=== PATIENT | male | born 1975 | race Caucasian/White ===

== ENCOUNTER 2019-08-14 17:29 | Emergency (ER) | payer BC ==
[2019-08-14] MEDS ORDERED: Tetan/Diph/Pertus SYR(Tdap)* 0.5 ML SYR(BOOSTRIX) use SYR contains LATEX IM ONE (17:44)
--- NOTE | 2019-08-14 17:45 | ED ---
Laceration/Wound HPI - HPI Summary HPI Summary: Pt is a 43 y/o M presenting to the ED with a chief complaint of a laceration on his L hand palm. He states he was cutting his [place] tree off the roof of his car with an exacto knife and his hand slipped, cutting the palm. He reports pain and bleeding. He denies numbness and tingling in the hand. Last tetanus shot unknown. - History of Current Complaint Stated Complaint: HAND INJURY PER PT Time Seen by Provider: 08/14/19 17:38 Hx Obtained From: Patient Mechanism of Injury: Sharp/Blunt Trauma Onset/Duration: Sudden Onset, Lasting Minutes, Still Present Aggravating: Nothing Alleviating: Nothing Timing: Constant Onset Severity: Moderate Current Severity: Moderate Pain Intensity: 5 Pain Scale Used: 0-10 Numeric Associated Signs & Symptoms: Pain Related Hx: Dominant Hand (Right) - Allergy/Home Medications Allergies/Adverse Reactions: Allergies Allergy/AdvReac Type Severity Reaction Status Date / Time No Known Allergies Allergy Verified 08/14/19 17:35 Home Medications: Home Medications Ibuprofen TAB* [Motrin TAB* 800 MG] 800 mg PO Q8HR PRN 08/14/19 [History Confirmed 08/14/19] PMH/Surg Hx/FS Hx/Imm Hx Previously Healthy: Yes Endocrine/Hematology History: Denies: Hx Diabetes Cardiovascular History: Denies: Hx Congestive Heart Failure, Hx Hypertension, Hx Pacemaker/ICD History: Reports: Other Problems/Disorders - RENAL CALCULI WITH STENT Denies: Hx Renal Disease Musculoskeletal History: Reports: Hx Back Problems - BACK SURGERY 2012 Sensory History: Denies: Hx Hearing Aid Neurological History: Reports: Hx Migraine Psychiatric History: Denies: Hx Panic Disorder - Surgical History Surgery Procedure, Year, and Place: RENAL STENT FOR RENAL CALCULI. TONSILS 2005. KNEE 2006. LOWER BACK MAY 2013 Hx Anesthesia Reactions: No Infectious Disease History: No Infectious Disease History: Denies: Traveled Outside the [place] in Last 30 Days - Family History Known Family History: Negative: Diabetes - Social History Occupation: Employed Full-time Lives: With Family Alcohol Use: Rare Hx Substance Use: No Substance Use Type: Reports: None Hx Tobacco Use: No Smoking Status (MU): Never Smoked Tobacco Review of Systems Positive: Myalgia Positive: Other - laceration, bleeding Negative: Paresthesia, Numbness All Other Systems Reviewed And Are Negative: Yes Physical Exam - Summary Physical Exam Summary: Constitutional: Well-developed, Well-nourished, Alert. (-) Distressed Skin: Warm, Dry. L palm just distal to the wrist crease with a 2cm laceration. No gaping wound. Full ROM in wrist and fingers. HENT: Normocephalic; Atraumatic Eyes: Conjunctiva normal Neck: Musculoskeletal ROM normal neck. (-) JVD, (-) Stridor, (-) Tracheal deviation Cardio: Rhythm regular, rate normal, Heart sounds normal; Intact distal pulses; Radial pulses are 2+ and symmetric. (-) Murmur Pulmonary/Chest wall: Effort normal. (-) Respiratory distress, (-) Wheezes, (-) Rales Abd: Soft, (-) tenderness, (-) Distension, (-) Guarding, (-) Rebound Musculoskeletal: (-) Edema Lymph: (-) Cervical adenopathy Neuro: Alert, Oriented x3 Psych: Mood and affect Normal Triage Information Reviewed: Yes Vital Signs On Initial Exam: Initial Vitals Temp Pulse Resp BP Pulse Ox 97.3 F 86 16 176/110 95 08/14/19 17:32 08/14/19 17:32 08/14/19 17:32 08/14/19 17:32 08/14/19 17:32 Vital Signs Reviewed: Yes Procedures - Sedation Patient Received Moderate/Deep Sedation with Procedure: No - Laceration/Wound Repair 1 Location: upper extremity - L hand (palm) Description: Linear Anesthesia: Local, 1.0%, Lido Betadine Prep?: No Irrigated w/ Saline (ccs): 500 Laceration/Wound Explored: clean Closure: Single Layer Debridement: minimal Suture Type: Prolene - 5-0 Number of Sutures: 3 Layer Closure?: Yes Sterile Dressing Applied?: Yes Diagnostics - Vital Signs Vital Signs Temp Pulse Resp BP Pulse Ox 08/14/19 17:32 97.3 F 86 16 176/110 95 - Laboratory Lab Statement: Any lab studies that have been ordered have been reviewed, and results considered in the medical decision making process. Laceration Repair Course/Dx - Course Course Of Treatment: Patient is here with a laceration to his palm. Patient was given tetanus as he cannot remember his last tetanus shot. Patient had his wound cleaned and repaired with sutures. - Clinical Impression Provider Diagnoses: Laceration of left hand Discharge ED - Sign-Out/Discharge Documenting (check all that apply): Patient Departure - Discharge Plan Condition: Stable Disposition: HOME Patient Education Materials: Care For Your Stitches (ED), Laceration (ED) Referrals: Omar Ricketts MD [Primary Care Provider] - Additional Instructions: Please see your primary care provider or return to the emergency department in the next 5-10 days to have your stitches removed. Come back to the emergency department if the area begins to worsen in pain, swell, if there's any pus drainage, or if the area becomes warm and more painful. You can wash your stitches, but please try to keep them dry when you are out of the shower. - Billing Disposition and Condition Condition: STABLE Disposition: Home - Attestation Statements Document Initiated by [place]: Yes Documenting Scribe: Jodie Garcia Provider For Whom Crut is Documenting (Include Credential): Ramez Pereira MD. Scribe Attestation: IJodie, scribed for Ramez Pereira MD. on 08/14/19 at 1811. Scribe Documentation Reviewed: Yes Provider Attestation: The documentation as recorded by the [email or web address] accurately reflects the service I personally performed and the decisions made by me, Ramez Pereira MD. Status of Scribe Document: Viewed
[2019-08-14 18:15] VITALS: BP 182/111
== END 2019-08-14 18:14 | disposition home or self-care (01) ==
LOC: ED 17:29
DX: S61.412A Laceration without foreign body of left hand, initial encounter (principal); W26.0XXA Contact with knife, initial encounter; Y92.9 Unspecified place or not applicable
CPT/HCPCS: 12001; 90471; 90715; 99281

== ENCOUNTER 2019-08-23 05:52 | Emergency (ER) | payer BC ==
[2019-08-23 06:10] LABS: ABS Basophils 0.1 10^3/ul (0-0.2); ABS Eosinophils 0.3 10^3/ul (0-0.6); ABS Lymphocytes 2.7 10^3/ul (1.0-4.8); ABS Monocytes 1.1 10^3/ul (0-0.8); ABS Neutrophils 6.2 10^3/ul (1.5-7.7); Eosinophil % 3.1 %; Hematocrit 45 % (42-52); Hemoglobin 15.2 g/dL (14.0-18.0); Lymphocyte % 26.2 %; Mean Corpuscular HGB Conc 34 g/dL (31-36); Mean Corpuscular Hemoglobin 29 pg (27-31); Mean Corpuscular Volume 87 fL (80-94); Mean Platelet Volume 7.3 fL (7.4-10.4); Nucleated Red Blood Cells % 0.1; Platelet Count 415 10^3/uL (150-450); Red Blood Count 5.19 10^6 /uL (4.18-5.48); Red Cell Distribution Width 13 % (10-15); White Blood Count 10.5 10^3/uL (3.5-10.8)
[2019-08-23] MEDS ORDERED: Nitroglycerin TAB 0.4 MG* 0.4 MG TAB SL ONE (06:22)
[2019-08-23 06:28] LABS: Albumin 4.7 g/dL (3.2-5.2); Albumin/Globulin Ratio 1.6 (1-3); BUN/Creatinine Ratio 26.5 (8-20); Calcium 9.8 mg/dL (8.6-10.3); EGFR Non-African American 83.5 (>60); Globulin 2.9 g/dL (2-4); Potassium 3.9 mmol/L (3.5-5.0); Total Bilirubin 0.5 mg/dL (0.2-1.0); Total Protein 7.6 g/dL (6.4-8.9)
[2019-08-23] MEDS ORDERED: Ondansetron ODT TAB* 4 MG SL ONE (07:06)
--- NOTE | 2019-08-23 07:21 | ED ---
HPI Chest Pain - HPI Summary HPI Summary: Pt presents with mid-sternal chest tightness and L arm tingling and nausea since 2:30am. No current modifying factors. Since he awoke with sxs of nausea at 2:30a, followed by a concerned feeling and heart racing. He states he was here recently with a hand injury and noted to have high BP, since then (2 weeks ago), patient continues to have concerns over his new dx of high blood pressure. Takes no medications. He does have a follow up apt with PCP regarding his HTN finding. Pt states on arrival he is feeling improved, however continues to have slight nausea. Denies cardiac hx. Family hx includes CAD. He states he had a hypothyroid dx 15yrs ago, but has never been treated. He was treated for high cholesterol also several years ago, but does not take medication now. Endorses sedentary lifestyle, no exercise, rare alcohol and non-smoker. He has never had these sxs before. He does admit to increased anxiety over the past 2 weeks since his HTN dx, but denies any previous dx. Denies recent illness. Denies weight gain, change of diet, cough , congestion, fevers, sweats, chills or recent travel. Denies SOB and abd pain. - History of Current Complaint Chief Complaint: EDChestPainROMI Time Seen by Provider: 08/23/19 06:00 Hx Obtained From: Patient Onset/Duration: Started Hours Ago Timing: Constant Initial Severity: Mild Current Severity: Mild Pain Intensity: 4 Pain Scale Used: 0-10 Numeric Chest Pain Radiates: No Aggravating Factor(s): Nothing Alleviating Factor(s): Nothing Associated Signs and Symptoms: Positive: Negative - Risk Factors Pulmonary Embolism Risk Factors: Negative TAD Risk Factors: Negative AMI/ACS Risk Factors: Family History, Hypertension - Allergy/Home Medications Allergies/Adverse Reactions: Allergies Allergy/AdvReac Type Severity Reaction Status Date / Time No Known Allergies Allergy Verified 08/23/19 06:00 PMH/Surg Hx/FS Hx/Imm Hx Previously Healthy: Yes Endocrine/Hematology History: Denies: Hx Diabetes Cardiovascular History: Denies: Hx Congestive Heart Failure, Hx Hypertension, Hx Pacemaker/ICD History: Reports: Other Problems/Disorders - RENAL CALCULI WITH STENT Denies: Hx Renal Disease Musculoskeletal History: Reports: Hx Back Problems - BACK SURGERY 2013 Sensory History: Denies: Hx Hearing Aid Neurological History: Reports: Hx Migraine Psychiatric History: Denies: Hx Panic Disorder - Surgical History Surgery Procedure, Year, and Place: RENAL STENT FOR RENAL CALCULI. TONSILS 2005. KNEE 2006. LOWER BACK MAY 2013 Hx Anesthesia Reactions: No - Immunization History Hx Pertussis Vaccination: No Immunizations Up to Date: Yes Infectious Disease History: No Infectious Disease History: Denies: Traveled Outside the [place] in Last 30 Days - Family History Known Family History: Negative: Diabetes - Social History Occupation: Employed Full-time Lives: With Family Alcohol Use: Rare Hx Substance Use: No Substance Use Type: Reports: None Hx Tobacco Use: No Smoking Status (MU): Never Smoked Tobacco Review of Systems Negative: Fever, Chills, Fatigue, Skin Diaphoresis Positive: Chest Pain, Other - heart racing Negative: Shortness Of Breath, Cough Positive: Nausea. Negative: Abdominal Pain, Vomiting, Diarrhea Genitourinary: Negative Positive: no symptoms reported, see HPI. Negative: burning, dysuria, discharge , flank pain, hematuria, urgency Negative: Arthralgia, Myalgia Skin: Negative Neurological: Negative Positive: Anxious - regarding recent HTN dx All Other Systems Reviewed And Are Negative: Yes Physical Exam Triage Information Reviewed: Yes Vital Signs On Initial Exam: Initial Vitals Temp Pulse Resp BP Pulse Ox 97.6 F 77 16 157/103 99 08/23/19 05:58 08/23/19 05:58 08/23/19 05:58 08/23/19 05:58 08/23/19 05:58 Vital Signs Reviewed: Yes Appearance: Positive: Well-Appearing, Well-Nourished Skin: Positive: Warm, Skin Color Reflects Adequate Perfusion Head/Face: Positive: Normal Head/Face Inspection Eyes: Positive: EOMI, CHAIM, Conjunctiva Clear Neck: Positive: Supple, No Lymphadenopathy Respiratory/Lung Sounds: Positive: Clear to Auscultation, Breath Sounds Present Musculoskeletal: Positive: Normal, Strength/ROM Intact Neurological: Positive: Speech Normal Psychiatric: Positive: Normal, Affect/Mood Appropriate - [place] Coma Scale Best Eye Response: 4 - Spontaneous Best Motor Response: 6 - Obeys Commands Best Verbal Response: 5 - Oriented Coma Scale Total: 15 Procedures - Sedation Patient Received Moderate/Deep Sedation with Procedure: No Diagnostics - Vital Signs Vital Signs Temp Pulse Resp BP Pulse Ox 08/23/19 07:00 72 18 95 08/23/19 06:39 79 11 125/94 97 08/23/19 06:21 71 15 148/106 96 08/23/19 06:11 76 08/23/19 06:09 85 19 99 08/23/19 06:08 12 08/23/19 05:58 97.6 F 77 16 157/103 99 - Laboratory Lab Results: Lab Results 08/23/19 08/23/19 08/23/19 Range/Units 06:00 06:00 06:00 WBC 10.5 (3.5-10.8) 10^3/uL RBC 5.19 (4.18-5.48) 10^6 /uL Hgb 15.2 (14.0-18.0) g/dL Hct 45 (42-52) % MCV 87 (80-94) fL MCH 29 (27-31) pg MCHC 34 (31-36) g/dL RDW 13 (10-15) % Plt Count 415 (150-450) 10^3/uL MPV 7.3 L (7.4-10.4) fL Neut % (Auto) 59.1 % Lymph % (Auto) 26.2 % [place] % (Auto) 10.3 % Eos % (Auto) 3.1 % Baso % (Auto) 1.3 % Absolute Neuts (auto) 6.2 (1.5-7.7) 10^3/ul Absolute Lymphs (auto) 2.7 (1.0-4.8) 10^3/ul Absolute Monos (auto) 1.1 H (0-0.8) 10^3/ul Absolute Eos (auto) 0.3 (0-0.6) 10^3/ul Absolute Basos (auto) 0.1 (0-0.2) 10^3/ul Absolute Nucleated RBC 0.0 10^3/ul Nucleated RBC % 0.1 Sodium 135 (135-145) mmol/L Potassium 3.9 (3.5-5.0) mmol/L Chloride 103 (101-111) mmol/L Carbon Dioxide 24 (22-32) mmol/L Anion Gap 8 (2-11) mmol/L BUN 26 H (6-24) mg/dL Creatinine 0.98 (0.67-1.17) mg/dL Est GFR ( Amer) 101.0 (>60) Est GFR (Non-Af Amer) 83.5 (>60) BUN/Creatinine Ratio 26.5 H (8-20) Glucose 97 (70-100) mg/dL Lactic Acid 0.7 (0.5-2.0) mmol/L Calcium 9.8 (8.6-10.3) mg/dL Total Bilirubin 0.50 (0.2-1.0) mg/dL AST 19 (13-39) U/L ALT 25 (7-52) U/L Alkaline Phosphatase 76 (34-104) U/L Troponin I 0.00 (<0.03) ng/mL Total Protein 7.6 (6.4-8.9) g/dL Albumin 4.7 (3.2-5.2) g/dL Globulin 2.9 (2-4) g/dL Albumin/Globulin Ratio 1.6 (1-3) Result Diagrams: 08/23/19 06:00 08/23/19 06:00 Lab Statement: Any lab studies that have been ordered have been reviewed, and results considered in the medical decision making process. Chest Pain Course/Dx - Course Course Of Treatment: HEART Score = 1. Risk factors include probable dx of HTN and positive family hx of CAD. Risk of MACE of 0.9-1.7%. Troponin = 0.00 EKG = NSR with rate of 76. Patient given SL nitro .4mg for chest discomfort and increased BP 187/120. This was subsequently reduced to 148/107. Pt sxs improved. He was given Zofran with good improvement of his nausea. As pt is feeling improved, low risk of MACE and has an established f/u regarding HTN dx, pt will be DCd at this time. He understands to return for worsening sxs. - Chest Pain Differential Diagnosis/HQI/PQRI: ACS, Angina, Other: - hypertension, nausea, anxiety, heart palpitations - Diagnoses Provider Diagnoses: Angina at rest Discharge ED - Sign-Out/Discharge Documenting (check all that apply): Patient Departure - Discharge Plan Condition: Stable Disposition: HOME Patient Education Materials: Angina (ED), Hypertension (ED) Referrals: Omar Ricketts MD [Medical Doctor] - Additional Instructions: Please follow up with PCP regarding your high blood pressure Attempt to destress as much as possible However, if you continue to have symptoms, please return to the ED - Billing Disposition and Condition Condition: STABLE Disposition: Home
[2019-08-23 08:15] VITALS: BP 118/83
== END 2019-08-23 08:14 | disposition home or self-care (01) ==
LOC: ED 05:52
DX: I20.9 Angina pectoris, unspecified (principal)
CPT/HCPCS: 36415; 71046; 80053; 83605; 84484; 85025; 93005; 99284; A9270-GY

== ENCOUNTER 2020-10-25 09:00 | Observation (INO) ==
[~2020-10-25 09:00] MED LIST: Buffered Lidocaine 1% SYRIN 1 ml INTRADERM ONE; Dexamethasone IV 4 MG/ML VIAL 1 ml VIAL IV SLOW PU ONE; Famotidine IV 10 MG/ML 2 ml VIAL (20 mg) IV ONE; Lactated Ringers 1000 ml BAG 1,000 ML IV SCH
[2020-10-25] MEDS ORDERED: Propofol 10 mg/ml 100 ML BTL 0 ML ONE (13:00)
[2020-10-25] MEDS ORDERED: fentaNYL 100 mcg/2 ml 50 MCG/ML VIAL ONE ×5 (13:00→19:08)
[2020-10-25] MEDS ORDERED: Dexamethasone IV 4 MG/ML VIAL 1 ml VIAL ONE ×2 (13:35→14:44)
[2020-10-25] MEDS ORDERED: Famotidine IV 10 MG/ML 2 ml VIAL (20 mg) ONE (13:36)
[2020-10-25] MEDS ORDERED: ceFAZolin 2 GM PREMIX 2 GM/50 ML BAG ONE (13:36)
[2020-10-25] MEDS ORDERED: Propofol 10 MG/ML 20 ML BTL ONE (14:44)
[2020-10-25] MEDS ORDERED: Lidocaine 2% PF 5 ML VIAL ONE (14:44)
[2020-10-25] MEDS ORDERED: Ondansetron 4 mg VIAL 2 MG/ML 2 ml VIAL ONE (14:44)
[2020-10-25] MEDS ORDERED: HYDROmorphone 1 MG/1 ML SYRINGE ONE (14:46)
[2020-10-25] MEDS ORDERED: ROPIVACAINE 5 MG/ML 30 ML BTL (0.5%) ONE ×2 (14:50→14:54)
[2020-10-25] MEDS ORDERED: Midazolam 2 mg/2 ml VIAL 1 mg/ml 2 ml VIAL (2 mg) ONE (14:51)
[2020-10-25] MEDS ORDERED: EPHEDrine (Pressors) 50 MG/ML VIAL ONE (16:27)
[2020-10-25] MEDS ORDERED: oxyCODONE/Acetamin 5/325 mg TAB PO PRN (16:57)
[2020-10-25] MEDS ORDERED: Naloxone 0.4 mg VIAL 0.4 mg/ml 1 ml VIAL IV PRN (16:57)
[2020-10-25] MEDS ORDERED: Morphine 4 MG/ML VIAL (1 ml) IV PRN (16:57)
[2020-10-25] MEDS ORDERED: Prochlorperazine 5 mg/ml 2 ml VIAL (10 mg) IV PRN (16:57)
[2020-10-25] MEDS ORDERED: HYDROcodone/ACETAMIN 5/325 mg TAB PO PRN (16:57)
[2020-10-25] MEDS ORDERED: Glycopyrrolate IV 0.2 MG/ML 1 ML VIAL ONE (17:04)
[2020-10-25] MEDS ORDERED: diPHENhydraMINE IV 50 MG/ML 1 ml VIAL (BENADRYL) IV PRN (17:55)
[2020-10-25] MEDS ORDERED: Morphine 2 MG/ML SYRINGE IV PRN (17:55)
[2020-10-25] MEDS ORDERED: diPHENhydraMINE 25 mg TAB PO PRN (17:55)
[2020-10-25] MEDS ORDERED: Ondansetron 4 mg VIAL 2 MG/ML 2 ml VIAL IV PRN (17:55)
[2020-10-25] MEDS ORDERED: Lactulose 30 ml UDC PO PRN (17:55)
[2020-10-25] MEDS ORDERED: Ondansetron ODT 4 mg TAB 4 MG TAB PO PRN (17:55)
[2020-10-25] MEDS ORDERED: Magnesium Hydroxide LIQ 30 ML UDC PO PRN (17:55)
[2020-10-25] MEDS ORDERED: Lactated Ringers 1000 ml BAG 1,000 ML IV SCH (18:00)
[2020-10-25] MEDS: fentaNYL 100 mcg/2 ml 50 MCG/ML VIAL IV PRN ×5 (18:10→19:09)
[2020-10-25] MEDS ORDERED: oxyCODONE/Acetamin 5/325 mg TAB ONE (18:20)
[2020-10-25] MEDS ORDERED: Morphine 4 MG/ML VIAL (1 ml) ONE (19:15)
[2020-10-25] MEDS: Magnesium Hydroxide LIQ 30 ML UDC PO SCH (20:21)
[2020-10-25] MEDS: ceFAZolin 1 GM ADVAN 1 GM in NS 0.9% 50 ML 50 ML IVPB SCH (22:21)
[2020-10-26 04:56] LABS: Hematocrit 37 % (42-52); Hemoglobin 12.4 g/dL (14.0-18.0); Mean Platelet Volume 6.9 fL (7.4-10.4); Platelet Count 334 10^3/uL (150-450)
[2020-10-26 05:14] LABS: BUN/Creatinine Ratio 11.2 (8-20); Calcium 9.1 mg/dL (8.6-10.3); EGFR African American 82.4 (>60); EGFR Non-African American 68.1 (>60); Potassium 4.3 mmol/L (3.5-5.0)
[2020-10-26] MEDS: ceFAZolin 1 GM ADVAN 1 GM in NS 0.9% 50 ML 50 ML IVPB SCH (06:06)
[2020-10-26] MEDS: Magnesium Hydroxide LIQ 30 ML UDC PO SCH (08:48)
[2020-10-26] MEDS ORDERED: Vitamin THERAPEUTIC TAB PO SCH (09:00)
[2020-10-26 11:09] VITALS: BP 118/71
== END 2020-10-26 12:20 | disposition home or self-care (01) ==
LOC: INTOOBSV 12:26 → AA 12:26 → SSU 17:55
PROVIDERS: ADMIT Orthopaedic Surgery Adult Reconstructive Orthopaedic Surgery; ATTEND Orthopaedic Surgery Adult Reconstructive Orthopaedic Surgery